=== PATIENT | male | born 1995 | race Caucasian/White ===

== ENCOUNTER 2025-03-22 16:10 | Emergency (ER) | payer MEDICAID, SELFPAY ==
[~2025-03-22] VITALS: Ht 167.6 cm; Wt 84.5 kg
[2025-03-22] MEDS ORDERED: ACET500P3 PO (16:18)
[2025-03-22] MEDS: IBUPROFEN 600 MG TAB PO ONE (17:41)
[2025-03-22 18:57] VITALS: BP 124/79; TEMP 99.5; O2SAT 96
[2025-03-22] MEDS: ACETAMINOPHEN 500 MG TAB PO ONE (19:19)
== END 2025-03-22 19:20 | disposition home or self-care (01) ==
LOC: M ED 16:10
DX: U07.1 COVID-19 (principal); F17.290 Nicotine dependence, other tobacco product, uncomplicated; Z79.1 Long term (current) use of non-steroidal anti-inflammatories (NSAID)